=== PATIENT | female | born 1955 | race African-American/Black ===

== ENCOUNTER 2017-10-25 08:15 | Outpatient (CLI) | payer OTHER ==
--- NOTE | 2017-10-25 11:30 | MRI ---
MRI LEFT SHOULDER WITHOUT CONTRAST: HISTORY: Left shoulder pain and rotator cuff tear (M25.512). COMPARISON: None. FINDINGS: BICEPS TENDON: The extraarticular biceps tendon is relatively unremarkable. Extensive intraarticula r tendinosis with a hidden interstitial tear. There is perching of the biceps tendon on the lesser t uberosity with injury of the superior glenohumeral ligament portion of the biceps ana. LABRUM: Mild free edge fraying and blunting of the superior labrum. Mild loss of volume of the post erior-superior labrum. These are likely chronic changes. ROTATOR CUFF: No full-thickness perforation. There is moderate bursal surface fraying of the myoten dinous junction of the supraspinatus anterior fibers, as well as some mild tendinosis at the footplat e of the infraspinatus tendon. There is some deep fiber partial tear of the subscapularis. MUSCLES: Muscle signal and bulk are normal. BONES: There is a type III acromion. Keel osteophyte of the coracoacromial ligament. No fracture. No malalignment. Mild degenerative disease of the acromioclavicular joint. SOFT TISSUES: Mild loss of subcoracoid fat. There is mild thickening of the axillary pouch of the i nferior glenohumeral ligament. There is mild edema of the rotator interval. IMPRESSION: 1. Type III acromion with some associated bursal surface fraying of the supraspinatus tendon and mil d subacromial/subdeltoid bursal effusion that can be causing some of the patient's pain. There may b e a source of impingement. 2. Low grade perching of the biceps tendon upon the lesser tuberosity with extensive tendinosis at t he intertubercular groove. 3. Mild loss of subcoracoid fat, as well as edema at the rotator interval and thickening of the axil shyanne pouch of the inferior glenohumeral ligament, which can be seen with capsulitis in the correct cl inical setting. 4. Mild tendinosis of the infraspinatus and supraspinatus tendons without a full-thickness perforati on. Muscle signal and bulk are normal. POS: [facility]
== END 2017-10-25 08:16 | disposition home or self-care (01) ==
LOC: MRI 08:15
PROVIDERS: ATTEND Orthopaedic Surgery
DX: M75.102 Unspecified rotator cuff tear or rupture of left shoulder, not specified as traumatic (principal); R60.0 Localized edema; M75.92 Shoulder lesion, unspecified, left shoulder; M25.512 Pain in left shoulder

== ENCOUNTER 2017-10-31 15:02 | Outpatient (CLI) | payer OTHER ==
[2017-10-31 16:00] LABS: Hemoglobin 14.1 g/dL (12.0-16.0); Mean Corpuscular HGB CONC 33.5 g/dL (32.0-36.0); Mean Corpuscular Hemoglobin 32.5 pg (27.0-31.0); Mean Platelet Volume 7.1 fL (7.4-10.4); Platelet Count 375 thou/uL (130-400); RBC Distribution Width 12.6 % (11.5-14.5); Red Blood Cell (RBC) Count 4.35 mill/uL (4.20-5.40); White Blood Cell (WBC) Count 7.9 thou/uL (4.8-10.8)
[2017-10-31 16:20] LABS: Anion Gap 13 mmol/L (10-20); BUN (Urea Nitrogen) 15 mg/dL (9.8-20.1); Calc. Creatinine Clearance 0 mL/min (70-130); Calcium 9.6 mg/dL (7.8-10.44); Carbon Dioxide 26 mmol/L (22-29); Chloride 104 mmol/L (98-107); Estimated GFR-MDRD 87; Glucose 103 mg/dL (70-105); Potassium 4.1 mmol/L (3.5-5.1); Sodium 139 mmol/L (136-145)
[2017-10-31 16:25] LABS: Band 1 % (5-11); Eosinophils 1 % (0-10); Lymphocytes 49 % (21-51); MDiff Complete? YES; Monocytes 11 % (0-10); Neutrophil 35 % (42-75); PLT Morphology Comment Appears Adequate; RBC Morphology Normal; Reactive Lymphocytes 3 % (0-10)
== END 2017-10-31 15:03 | disposition home or self-care (01) ==
LOC: LABBT 15:02
PROVIDERS: ATTEND Orthopaedic Surgery
DX: Z01.818 Encounter for other preprocedural examination (principal); M25.812 Other specified joint disorders, left shoulder
CPT/HCPCS: 80048; 85025; 93005; 93010

== ENCOUNTER 2017-11-04 06:02 | Day surgery (SDC) | payer OTHER ==
[2017-10-31 15:24] VITALS: BMI 27.9
[2017-11-04] MEDS ORDERED: Midazolam HCl 2 mg/2 ml Vial ONE (06:26)
[2017-11-04] MEDS ORDERED: Fentanyl 100 MCG/2 ML VIAL ONE (06:26)
[2017-11-04] MEDS ORDERED: Bupivacaine/Epinephrine 0.25% 30 ML VIAL ONE (07:00)
[2017-11-04] MEDS ORDERED: CEFAZOLIN/Water 2 GM/20 ML SYRINGE ONE (07:13)
[2017-11-04] MEDS ORDERED: Promethazine HCl 25 MG/ML VIAL IM PRN (07:30)
[2017-11-04] MEDS ORDERED: Ketorolac Tromethamine 30 MG/ML VIAL IVP PRN (07:30)
[2017-11-04] MEDS ORDERED: HYDROcodone/Acetaminophen 5/325 mg Tablet PO PRN ×2 (07:30)
[2017-11-04] MEDS ORDERED: Ropivacaine HCl/PF 1,100 MG in Premix Bag 1 BAG NERVE BLCK SCH (07:30)
[2017-11-04] MEDS ORDERED: Ondansetron HCl/PF 4 MG/2 ML Vial IVP PRN (07:30)
[2017-11-04] MEDS ORDERED: traMADol HCl 50 MG TAB PO PRN ×2 (07:30)
[2017-11-04] MEDS ORDERED: Zolpidem Tartrate 5 MG TAB PO PRN (07:30)
[2017-11-04] MEDS ORDERED: Fentanyl 100 MCG/2 ML VIAL IV PRN (07:32)
[2017-11-04] MEDS ORDERED: SUGAMMADEX SODIUM 200 MG/2 ML VIAL ONE (09:22)
[2017-11-04] MEDS ORDERED: Ropivacaine 0.2% HCl/PF (40 MG/20 ML VIAL) ONE (11:03)
[2017-11-04] MEDS ORDERED: Ropivacaine 0.5% HCl/PF (150 MG/30 ML VIAL) ONE (11:03)
--- NOTE | 2017-11-04 11:12 | OP ---
DATE OF OPERATION: 11/04/2017 PREOPERATIVE DIAGNOSES: Left shoulder impingement, subacromial bursitis as well as intra-articular b iceps tearing and subluxation out of the bicipital groove. POSTOPERATIVE DIAGNOSES: Left shoulder impingement, subacromial bursitis as well as intraarticular b iceps tearing and subluxation out of the bicipital groove. PROCEDURES PERFORMED: 1. Left shoulder arthroscopy with subacromial decompression. 2. Open biceps tenodesis. SURGEON: Royer Bailey M.D. SOIL EXPERT: Jovany Moseley PA-C. BLOOD LOSS: Less than 30 mL. COMPLICATIONS: None. ANESTHESIA: The patient had general anesthetic. She also had a preoperative block. DISPOSITION: She did go to recovery room in stable condition. IMPLANTS: Arthrex 7 x 23 BioComposite Bio-Tenodesis screw. INDICATIONS: This is a 62-year-old female who has been having problems with her shoulder for over 3 years and at this time was found by MR there is significant problem with her biceps which was found t o be very attenuated, enlarged, and perched on the lesser tuberosity as well as has significant bursi tis. At this time, she opted to have surgery. PROCEDURE IN DETAIL: After appropriate consent forms were explained and signed, she was taken to the Operating Room and at this time was given general anesthetic. Once the level of anesthesia was appr opriate, she was rolled into the right lateral decubitus position with all bony prominences well-padd ed. Axilla was placed underneath the right axilla and the elkins bag was inflated to hold her in this position. The left arm was then taken through some range of motion and was then hung up in the tract ion apparatus with 10 pounds in standard fashion. The left shoulder and upper extremity were then pr epped and draped in the standard surgical fashion. Bony anatomic landmarks were drawn out and subacr omial space was infiltrated with Marcaine with epinephrine. At this time, a posterior portal was est ablished and the scope was placed into the shoulder joint. An anterior working portal was then made using a needle localization technique. Diagnostic arthroscopy commenced at this time the articular s urface of the humeral head and glenoid were in good condition. There was an obvious deformity of the proximal biceps that was very enlarged, very large, found to be lying anterior compared to normal. The subscapularis was intact. The rest of the rotator cuff was found to be intact. There were no lo ose bodies in the axillary pouch. The labrum other than superiorly was found to be in good condition and at this time we used a needle to place a stitch through our biceps tendon and the arthroscopic s cissors were brought in to cut the biceps tendon off the superior labrum. Shaver was used to debride this tissue and at this time, the scope was removed and replaced into the subacromial space. Latera l working portal was made. There was a significant amount of bursal tissue that was removed with the shaver and the surface energy and at this time a small bony decompression was performed using the foster rface energy, the bur and the shaver in standard fashion. On the top of the rotator cuff appeared to be intact. At this time, the scope was removed and shoulder was drained. We then used a 15 blade t o make an incision down the arm down through skin only. The Bovie was used to coagulate any brisk ve nous bleeding. We then entered our deltoid fascia sharply and used finger dissection to dissect in l ine with the deltoid fibers to get down to the underlying transverse humeral ligament. Transverse hu meral ligament was opened up in its entirety. All brisk venous bleeding was coagulated all synovitic tissue was removed and at this time, the biceps tendon was sutured so that the more distal normal ap pearing portion was sutured in this very large bulbous proximal portion was removed. At this time, marshal ferguson then placed our pin and used a 7 mm reamer to ream to a depth of 25 and placed a 7 x 23 Bio[employer] e Bio-Tenodesis screw in standard fashion. Sutures were tied over top of this so that the screw coul d not back out. We then thoroughly irrigated, dried. We used multiple Vicryls to close our deltoid fascia, 2-0 and sutures to close the skin. Bulky sterile dressing was applied. The patient was awak ened. She was taken to the recovery room in stable condition. All counts were correct at the end of the case. She received preoperative IV antibiotics.
[2017-11-04] MEDS ORDERED: PHENYLEPHRINE-NS 100 MCG/ML 10 ML SYRINGE ONE (17:58)
[2017-11-04] MEDS ORDERED: ePHEDrine/0.9% NaCl/PF SYRINGE 50 mg/10 ml ONE (17:58)
[2017-11-04] MEDS ORDERED: PROPOFOL 200 MG/20 ML VIAL ONE (17:58)
[2017-11-04] MEDS ORDERED: Ondansetron HCl/PF 4 MG/2 ML Vial ONE (17:58)
[2017-11-04] MEDS ORDERED: Glycopyrrolate 0.2 MG/ML 5 ML SYRINGE ONE (17:58)
[2017-11-04] MEDS ORDERED: Dexamethasone 20 MG/5 ML VIAL ONE (17:58)
== END 2017-11-04 11:50 | disposition home or self-care (01) ==
LOC: SDC 06:02
PROVIDERS: ATTEND Orthopaedic Surgery
PROC: 0RBK4ZZ Excision of Left Shoulder Joint, Percutaneous Endoscopic Approach (ICD-10-PCS; principal; 2017-11-04)
PROC: 0LS20ZZ Reposition Left Shoulder Tendon, Open Approach (ICD-10-PCS; principal; 2017-11-04)
DX: M75.42 Impingement syndrome of left shoulder (principal); M75.52 Bursitis of left shoulder; S46.122A Laceration of muscle, fascia and tendon of long head of biceps, left arm, initial encounter; Z79.1 Long term (current) use of non-steroidal anti-inflammatories (NSAID); Z79.899 Other long term (current) drug therapy
CPT/HCPCS: C1713; J1100; J2250; J2405; J2704; J2795; J3010

== ENCOUNTER 2020-12-30 13:52 | Outpatient (CLI) | payer OTHER | END 2020-12-30 13:53 | disposition home or self-care (01) | LOC: ULT 13:52 | PROVIDERS: ATTEND Family Medicine | DX: R55 Syncope and collapse (principal); R93.1 Abnormal findings on diagnostic imaging of heart and coronary circulation | CPT/HCPCS: 93880 ==